=== PATIENT | female | born 1935 | race Caucasian/White ===

== ENCOUNTER 2018-03-12 14:37 | Inpatient (IN) | payer MEDICARE, OTHER ==
[~2018-03-12] VITALS: Ht 152.4 cm; Wt 81.2 kg
[~2018-03-12 14:37] MED LIST changes: -ALBU90OI61 INH; -AZIT250 PO; -DILT180 PO; -PRED10 PO; -SULFATRIM 800-120 ML PO; -TRAM50 PO; -TRAZ50 PO; -WARF1; -XARELTO15 MG PO
[2018-03-12] MEDS ORDERED: PRED10 PO (15:02)
[2018-03-12] MEDS ORDERED: WARF1 (15:02)
[2018-03-12] MEDS ORDERED: SULFATRIM 800-120 ML PO (15:04)
[2018-03-12] MEDS ORDERED: TRAZ50 PO (15:04)
[2018-03-12 15:05] LABS: BASOPHILS ABSOLUTE AUTO 0.06 K/mm3 (0.00-0.23); BASOPHILS PERCENT AUTO 1 % (0-2); EOSINOPHILS ABSOLUTE AUTO 0.16 K/mm3 (0.00-0.68); EOSINOPHILS PERCENT AUTO 2 % (0-6); Hematocrit 40.8 % (33.0-51.0); Hemoglobin 13.2 g/dL (11.5-16.0); IMMATURE GRAN ABSOLUTE AUTO 0.05 K/mm3 (0.00-0.10); IMMATURE GRAN PERCENT AUTO 1 % (0-1); LYMPHOCYTES ABSOLUTE AUTO 1.17 K/mm3 (0.84-5.20); LYMPHOCYTES PERCENT AUTO 11 % (21-46); MONOCYTES ABSOLUTE AUTO 0.84 K/mm3 (0.16-1.47); MONOCYTES PERCENT AUTO 8 % (4-13); Mean Corpuscular HGB 29.5 pg (26.0-34.0); Mean Corpuscular HGB Conc 32.4 g/dL (31.5-36.5); Mean Corpuscular Volume 91 fL (80-100); Mean Platelet Volume 12.2 fL (9.1-12.4); NEUTROPHILS ABSOLUTE AUTO 8.26 K/mm3 (1.96-9.15); NEUTROPHILS PERCENT AUTO 78 % (41-73); Platelet Count 135 K/mm3 (150-400); RDW Coefficient Variation 15.2 % (11.7-14.2); RDW Standard Deviation 50.8 fL (35.1-46.3); Red Blood Cell Count 4.48 M/mm3 (3.80-5.20); White Blood Cell Count 10.54 K/mm3 (4.00-11.30)
[2018-03-12 15:22] LABS: Alanine Aminotransfer (ALT/SGP 24 U/L (12-78); Albumin, Blood 3.2 g/dL (3.4-5.0); Albumin/Globulin Ratio 0.9 (0.8-1.8); Alk Phos 56 U/L (50-136); Anion Gap 8 mmol/L (6-16); Aspartate Aminotrans (AST/SGOT 16 U/L (12-37); Bilirubin, Total 0.6 mg/dL (0.1-1.0); Blood Urea Nitrogen 27 mg/dL (8-24); CO2, Blood 28 mmol/L (21-32); Calcium, Blood 9.3 mg/dL (8.5-10.1); Chloride, Blood 104 mmol/L (98-108); Creatinine, Blood 1.69 mg/dL (0.40-1.00); Globulin, Blood 3.6 g/dL (2.2-4.0); Glomerular Filtration Rate 31 (60-); Glucose, Blood 118 mg/dL (70-99); Potassium, Blood 4.5 mmol/L (3.5-5.5); Sodium, Blood 140 mmol/L (136-145); Total Protein, Blood 6.8 g/dL (6.4-8.2); Troponin I <0.015 ng/mL (0.000-0.040)
[2018-03-12] MEDS ORDERED: TRAM50 PO (15:24)
[2018-03-12] MEDS ORDERED: ALBU90OI61 INH (15:24)
[2018-03-12 17:22] LABS: Thyroid Stimulating Hormone 0.679 uIU/mL (0.360-4.800)
[2018-03-13 04:37] LABS: BASOPHILS ABSOLUTE AUTO 0.04 K/mm3 (0.00-0.23); BASOPHILS PERCENT AUTO 0 % (0-2); EOSINOPHILS ABSOLUTE AUTO 0.11 K/mm3 (0.00-0.68); EOSINOPHILS PERCENT AUTO 1 % (0-6); IMMATURE GRAN ABSOLUTE AUTO 0.05 K/mm3 (0.00-0.10); IMMATURE GRAN PERCENT AUTO 1 % (0-1); LYMPHOCYTES ABSOLUTE AUTO 1.06 K/mm3 (0.84-5.20); LYMPHOCYTES PERCENT AUTO 10 % (21-46); MONOCYTES ABSOLUTE AUTO 0.66 K/mm3 (0.16-1.47); MONOCYTES PERCENT AUTO 6 % (4-13); Mean Corpuscular HGB 29.2 pg (26.0-34.0); Mean Corpuscular HGB Conc 32.5 g/dL (31.5-36.5); Mean Corpuscular Volume 90 fL (80-100); Mean Platelet Volume 12.3 fL (9.1-12.4); NEUTROPHILS ABSOLUTE AUTO 8.43 K/mm3 (1.96-9.15); NEUTROPHILS PERCENT AUTO 81 % (41-73); Platelet Count 121 K/mm3 (150-400); RDW Coefficient Variation 15.2 % (11.7-14.2); RDW Standard Deviation 49.7 fL (35.1-46.3); Red Blood Cell Count 4.45 M/mm3 (3.80-5.20); White Blood Cell Count 10.35 K/mm3 (4.00-11.30)
[2018-03-13 04:55] LABS: Albumin, Blood 3.1 g/dL (3.4-5.0); Albumin/Globulin Ratio 0.9 (0.8-1.8); Bilirubin, Total 0.7 mg/dL (0.1-1.0); Bun/Creatinine Ratio 17.2 (12.0-20.0); Creatinine, Blood 2.03 mg/dL (0.40-1.00); Globulin, Blood 3.6 g/dL (2.2-4.0); Potassium, Blood 3.3 mmol/L (3.5-5.5); Total Protein, Blood 6.7 g/dL (6.4-8.2)
[2018-03-13 11:18] LABS: Source, Urine Clean Catch
[2018-03-13 11:34] LABS: Bilirubin, Urine Neg (Neg); Blood, Urine 1+ (Neg); Glucose Qualitative, Urine Neg (Neg); Ketones, Urine Neg (Neg); Leukocyte Esterase, Urine 1+ (Neg); Nitrite, Urine Neg (Neg); Protein, Urine Neg (Neg); Urobilinogen, Urine NORM (Normal)
[2018-03-13 11:39] LABS: Appearance, Urine Clear (Clear); Color, Urine Yellow (P-Yellow)
[2018-03-13 11:42] LABS: Bacteria Few /hpf; Red Blood Cells, Urine 0-2 /hpf (0-2); Squamous Epithelial Cells Few /hpf (Few)
[2018-03-13 16:12] LABS: Adenovirus Not Detected (NOT DETECT); Coronavirus 229E Not Detected (NOT DETECT); Coronavirus HKU1 Not Detected (NOT DETECT); Coronavirus NL63 Not Detected (NOT DETECT); Coronavirus OC43 Not Detected (NOT DETECT); Human Rhinovirus/Enterovirus Not Detected (NOT DETECT); Influenza A/2009-H1 Not Detected (NOT DETECT); Influenza A/H1 Not Detected (NOT DETECT); Influenza A/H3 Not Detected (NOT DETECT)
[2018-03-13 16:13] LABS: Bordetella pertussis Not Detected (NOT DETECT); Chlamydophila pneumoniae Not Detected (NOT DETECT); Influenza B Not Detected (NOT DETECT); Mycoplasma pneumoniae Not Detected (NOT DETECT); Parainfluenza Virus 1 Not Detected (NOT DETECT); Parainfluenza Virus 2 Not Detected (NOT DETECT); Parainfluenza Virus 3 Not Detected (NOT DETECT); Parainfluenza Virus 4 Not Detected (NOT DETECT); Respiratory Syncytial Virus Not Detected (NOT DETECT)
[2018-03-13 19:52] LABS: Human Metapneumovirus Detected (NOT DETECT)
[2018-03-13 21:16] LABS: Influenza A Not Detected (NOT DETECT)
[2018-03-14] MEDS ORDERED: PRED10 PO (10:29)
[2018-03-14] MEDS ORDERED: AZIT250 PO (10:32)
[2018-03-14] MEDS ORDERED: DILT180 PO (10:32)
[2018-03-14] MEDS ORDERED: XARELTO15 MG PO (10:33)
== END 2018-03-14 13:09 | disposition home or self-care (01) | DRG 309 ==
LOC: ER 14:37 → PCU 15:44
PROVIDERS: Hospitalist; Internal Medicine
DX: I48.91 Unspecified atrial fibrillation (principal); J45.901 Unspecified asthma with (acute) exacerbation; N39.0 Urinary tract infection, site not specified; I50.20 Unspecified systolic (congestive) heart failure; J20.9 Acute bronchitis, unspecified; E87.70 Fluid overload, unspecified; E87.6 Hypokalemia; M35.3 Polymyalgia rheumatica; I11.0 Hypertensive heart disease with heart failure; E78.5 Hyperlipidemia, unspecified; Z86.711 Personal history of pulmonary embolism; Z79.2 Long term (current) use of antibiotics; Z79.51 Long term (current) use of inhaled steroids; Z79.899 Other long term (current) drug therapy
CPT/HCPCS: 36415; 71046; 80053; 81001; 83880; 84443; 84484; 85025; 85610; 85730; 87070; 87086; 87205; 87486; 87581; 87633; 87798; 93005; 93010; 93306; 94760; 96365; 96375; 96376; 99285; J0696; J1940

== ENCOUNTER → 2018-03-12 | Outpatient (CLI) | payer MEDICARE, OTHER ==
[~2018-03-12] MED LIST: ALBU90OI; ALBU90OI61 INH; ATOR40TA PO; AZIT250 PO; BLOOD PRESSURE MED; CHOLESTERAL MED; CHOLESTEROL MED; CLAR500 PO; DILT180 PO; ETOD200; FEXO180; FLUSAL2505; GEMF600 PO; HYDACE5325 PO; IBUP400 PO; METCAR500 PO; ONDA4 PO; OXYACE5T PO; PRED10 PO; PROM25 PO; RXHYDGUAS PO; RXONDA4ODT MM; RXOXYACE PO; SIME80CH PO; SULFATRIM 800-120 ML PO; TRAM50 PO; TRAZ50 PO; TRIHYD253A PO; WARF1; XARELTO15 MG PO
[2018-03-12 14:18] LABS: BASOPHILS ABSOLUTE AUTO 0.05 K/mm3 (0.00-0.23); BASOPHILS PERCENT AUTO 1 % (0-2); EOSINOPHILS ABSOLUTE AUTO 0.22 K/mm3 (0.00-0.68); EOSINOPHILS PERCENT AUTO 2 % (0-6); Hematocrit 41.1 % (33.0-51.0); Hemoglobin 13.6 g/dL (11.5-16.0); IMMATURE GRAN ABSOLUTE AUTO 0.03 K/mm3 (0.00-0.10); IMMATURE GRAN PERCENT AUTO 0 % (0-1); LYMPHOCYTES ABSOLUTE AUTO 0.98 K/mm3 (0.84-5.20); LYMPHOCYTES PERCENT AUTO 9 % (21-46); MONOCYTES ABSOLUTE AUTO 0.82 K/mm3 (0.16-1.47); MONOCYTES PERCENT AUTO 8 % (4-13); Mean Corpuscular HGB Conc 33.1 g/dL (31.5-36.5); Mean Corpuscular Volume 91 fL (80-100); Mean Platelet Volume 12.2 fL (9.1-12.4); NEUTROPHILS ABSOLUTE AUTO 8.86 K/mm3 (1.96-9.15); NEUTROPHILS PERCENT AUTO 81 % (41-73); Platelet Count 142 K/mm3 (150-400); RDW Coefficient Variation 15.3 % (11.7-14.2); RDW Standard Deviation 51.1 fL (35.1-46.3); Red Blood Cell Count 4.53 M/mm3 (3.80-5.20); White Blood Cell Count 10.96 K/mm3 (4.00-11.30)
[2018-03-12 14:31] LABS: Albumin, Blood 3.4 g/dL (3.4-5.0); Albumin/Globulin Ratio 0.9 (0.8-1.8); Bilirubin, Total 0.7 mg/dL (0.1-1.0); Bun/Creatinine Ratio 14.9 (12.0-20.0); Calcium, Blood 9.7 mg/dL (8.5-10.1); Creatinine, Blood 1.88 mg/dL (0.40-1.00); Globulin, Blood 3.8 g/dL (2.2-4.0); Potassium, Blood 4.4 mmol/L (3.5-5.5); Total Protein, Blood 7.2 g/dL (6.4-8.2)
[2018-03-12 14:49] LABS: International Normalized Ratio 1.03; Prothrombin Time Results 10.7 Sec (9.7-11.5)
== END ==
LOC: LAB EV 14:13 → LAB SHORT 14:13
PROVIDERS: Physician Assistant
DX: Z79.01 Long term (current) use of anticoagulants (principal); Z51.81 Encounter for therapeutic drug level monitoring; R00.0 Tachycardia, unspecified; R05 Cough
CPT/HCPCS: 80053; 85025; 85610; 85730

== ENCOUNTER 2018-11-13 14:07 | Emergency (ER) | payer MEDICARE, OTHER ==
[~2018-11-13] VITALS: Ht 152.4 cm; Wt 81.7 kg
[~2018-11-13 14:07] MED LIST changes: +ALBU90OI61 INH; +AZIT250 PO; +DILT180 PO; +PRED10 PO; +SULFATRIM 800-120 ML PO; +TRAM50 PO; +TRAZ50 PO; +WARF1; +XARELTO15 MG PO
[2018-11-13] MEDS ORDERED: FURO40 PO (14:22)
[2018-11-13] MEDS ORDERED: POTCHL10ER PO (14:22)
[2018-11-13] MEDS ORDERED: Ultram50 MG PO (15:33)
== END 2018-11-13 16:25 | disposition home or self-care (01) ==
LOC: ER 14:07
DX: M19.072 Primary osteoarthritis, left ankle and foot (principal); J45.909 Unspecified asthma, uncomplicated; E78.5 Hyperlipidemia, unspecified; I48.91 Unspecified atrial fibrillation; Z79.899 Other long term (current) drug therapy; Z79.82 Long term (current) use of aspirin
CPT/HCPCS: 73630; 96374; 96375; 99283-25; J1885; J3010

== ENCOUNTER → 2019-11-02 | Outpatient (CLI) | payer MEDICARE, OTHER ==
[~2019-11-02] MED LIST changes: +FURO40 PO; +POTCHL10ER PO; +Ultram50 MG PO
[2019-11-02 12:46] LABS: BASOPHILS ABSOLUTE AUTO 0.04 K/mm3 (0.00-0.23); BASOPHILS PERCENT AUTO 1 % (0-2); EOSINOPHILS ABSOLUTE AUTO 0.25 K/mm3 (0.00-0.68); EOSINOPHILS PERCENT AUTO 3 % (0-6); Hematocrit 37.1 % (33.0-51.0); Hemoglobin 12.1 g/dL (11.5-16.0); IMMATURE GRAN ABSOLUTE AUTO 0.02 K/mm3 (0.00-0.10); IMMATURE GRAN PERCENT AUTO 0 % (0-1); LYMPHOCYTES ABSOLUTE AUTO 1.89 K/mm3 (0.84-5.20); LYMPHOCYTES PERCENT AUTO 23 % (21-46); MONOCYTES ABSOLUTE AUTO 0.83 K/mm3 (0.16-1.47); MONOCYTES PERCENT AUTO 10 % (4-13); Mean Corpuscular HGB 30.9 pg (26.0-34.0); Mean Corpuscular HGB Conc 32.6 g/dL (31.5-36.5); Mean Corpuscular Volume 95 fL (80-100); NEUTROPHILS ABSOLUTE AUTO 5.16 K/mm3 (1.96-9.15); NEUTROPHILS PERCENT AUTO 63 % (41-73); RDW Standard Deviation 48.2 fL (35.1-46.3); Red Blood Cell Count 3.92 M/mm3 (3.80-5.20); White Blood Cell Count 8.19 K/mm3 (4.00-11.30)
[2019-11-02 12:55] LABS: Albumin, Blood 3.1 g/dL (3.4-5.0); Bilirubin, Total 0.3 mg/dL (0.1-1.0); Bun/Creatinine Ratio 17.4 (12.0-20.0); Calcium, Blood 8.4 mg/dL (8.5-10.1); Creatinine, Blood 1.15 mg/dL (0.40-1.00); Globulin, Blood 3.2 g/dL (2.2-4.0); Potassium, Blood 3.8 mmol/L (3.5-5.5); Total Protein, Blood 6.3 g/dL (6.4-8.2)
[2019-11-02 13:13] LABS: Mean Platelet Volume 11.5 fL (9.1-12.4); Platelet Count 139 K/mm3 (150-400)
[2019-11-02 13:26] LABS: Uric Acid, Blood 5.1 mg/dL (2.6-6.0)
[2019-11-03 10:58] LABS: Antinuclear Antibody Screen Negative (Negative)
[2019-11-03 13:17] LABS: Rheumatoid Factor, Serum Positive (Negative)
[2019-11-03 13:18] LABS: RA, SEMIQUANTITATIVE 32 IU/ml (<8)
== END | disposition home or self-care (01) ==
LOC: LAB SHORT 12:39 → LAB EV 12:39 → LAB 12:39
PROVIDERS: General Practice
DX: S66.912A Strain of unspecified muscle, fascia and tendon at wrist and hand level, left hand, initial encounter (principal); Z86.79 Personal history of other diseases of the circulatory system
CPT/HCPCS: 80053; 84550; 85025; 85651; 86038; 86200; 86430; 86431

== ENCOUNTER → 2020-08-23 | Outpatient (CLI) | payer MEDICARE, OTHER | LOC: LAB SHORT 18:40 → LAB 18:40 | DX: L08.9 Local infection of the skin and subcutaneous tissue, unspecified (principal) | CPT/HCPCS: 87070; 87205 ==

== ENCOUNTER 2021-06-16 11:48 | Inpatient (IN) | payer MEDICARE, OTHER ==
[~2021-06-16] VITALS: Ht 167.6 cm; Wt 90.8 kg
[2021-06-16 12:35] LABS: BASOPHILS ABSOLUTE AUTO 0.06 K/mm3 (0.00-0.23); BASOPHILS PERCENT AUTO 1 % (0-2); EOSINOPHILS ABSOLUTE AUTO 0.01 K/mm3 (0.00-0.68); EOSINOPHILS PERCENT AUTO 0 % (0-6); Hematocrit 39.6 % (33.0-51.0); Hemoglobin 12.3 g/dL (11.5-16.0); IMMATURE GRAN ABSOLUTE AUTO 0.04 K/mm3 (0.00-0.10); IMMATURE GRAN PERCENT AUTO 1 % (0-1); LYMPHOCYTES ABSOLUTE AUTO 1.45 K/mm3 (0.84-5.20); LYMPHOCYTES PERCENT AUTO 16 % (21-46); MONOCYTES ABSOLUTE AUTO 1.13 K/mm3 (0.16-1.47); MONOCYTES PERCENT AUTO 13 % (4-13); Mean Corpuscular HGB 26.7 pg (26.0-34.0); Mean Corpuscular HGB Conc 31.1 g/dL (31.5-36.5); Mean Corpuscular Volume 86 fL (80-100); Mean Platelet Volume 11.3 fL (9.1-12.4); NEUTROPHILS ABSOLUTE AUTO 6.15 K/mm3 (1.96-9.15); NEUTROPHILS PERCENT AUTO 70 % (41-73); Platelet Count 177 K/mm3 (150-400); RDW Coefficient Variation 17.5 % (11.7-14.2); RDW Standard Deviation 55.8 fL (35.1-46.3); White Blood Cell Count 8.84 K/mm3 (4.00-11.30)
[2021-06-16 12:58] LABS: Albumin/Globulin Ratio 0.8 (0.8-1.8); Bilirubin, Total 0.5 mg/dL (0.1-1.0); Bun/Creatinine Ratio 12.9 (12.0-20.0); Calcium, Blood 8.7 mg/dL (8.5-10.1); Creatine Kinase MB 6.1 ng/mL (0.0-3.6); Creatine Kinase MB Index 1.1 (0.0-4.0); Creatinine, Blood 1.4 mg/dL (0.40-1.00); Globulin, Blood 3.8 g/dL (2.2-4.0); Potassium, Blood 3.6 mmol/L (3.5-5.5); Total Protein, Blood 6.8 g/dL (6.4-8.2); Troponin I 0.033 ng/mL (0.000-0.040)
[2021-06-16] MEDS ORDERED: PRED5 PO (14:46)
[2021-06-16] MEDS ORDERED: ELIQUIS2.5 M1 PO (14:47)
[2021-06-16] MEDS ORDERED: ROSUVASTATIN CA40 MG PO (14:47)
[2021-06-16] MEDS ORDERED: WIXELA 250-501 EAC1 INH (14:47)
[2021-06-16] MEDS ORDERED: GABA100 PO (14:47)
[2021-06-16] MEDS ORDERED: DILTIAZEM 24HR180 M3 PO (14:47)
[2021-06-16 17:38] LABS: Source, Urine Catheter
[2021-06-16 17:48] LABS: Appearance, Urine Clear (Clear); Bilirubin, Urine Neg (Neg); Blood, Urine 3+ (Neg); Color, Urine Yellow (P-Yellow); Glucose Qualitative, Urine Neg (Neg); Ketones, Urine 2+ (Neg); Leukocyte Esterase, Urine Neg (Neg); Nitrite, Urine Neg (Neg); Protein, Urine 3+ (Neg); Urobilinogen, Urine NORM (Normal)
[2021-06-16 18:08] LABS: Bacteria Mod /hpf; Red Blood Cells, Urine 0-2 /hpf (0-2); Squamous Epithelial Cells Mod /hpf (Few)
--- NOTE | 2021-06-16 18:26 | NUR ---
SHIFT SUMMARY NO ACUTE EVENTS SINCE ARRIVAL FROM ED. PT IS ALERT, ANSWERS QUESTIONS APPROPRIATELY. PT TRANSFERED TO BED BY NURSING STAFF. PT CALLS APPROPRIATELY. ON ROOM AIR, TOLERATING WELL WITH O2 SATURATION > 90%. FLUIDS RUNNING PER EMAR, TOLERATING PO INTAKE. NO SIGNS OF ACUTE DISTRESS, SPEAKING WITH FAMILY ON PHONE.
[2021-06-17 01:12] LABS: BASOPHILS PERCENT AUTO 0 % (0-2); EOSINOPHILS PERCENT AUTO 0 % (0-6); Hematocrit 36.8 % (33.0-51.0); Hemoglobin 11.4 g/dL (11.5-16.0); IMMATURE GRAN ABSOLUTE AUTO 0.03 K/mm3 (0.00-0.10); IMMATURE GRAN PERCENT AUTO 1 % (0-1); LYMPHOCYTES PERCENT AUTO 8 % (21-46); MONOCYTES ABSOLUTE AUTO 0.19 K/mm3 (0.16-1.47); MONOCYTES PERCENT AUTO 3 % (4-13); Mean Corpuscular HGB 26.5 pg (26.0-34.0); Mean Corpuscular Volume 86 fL (80-100); Mean Platelet Volume 11.4 fL (9.1-12.4); NEUTROPHILS ABSOLUTE AUTO 5.49 K/mm3 (1.96-9.15); NEUTROPHILS PERCENT AUTO 88 % (41-73); Platelet Count 145 K/mm3 (150-400); RDW Coefficient Variation 17.4 % (11.7-14.2); RDW Standard Deviation 54.7 fL (35.1-46.3); White Blood Cell Count 6.21 K/mm3 (4.00-11.30)
[2021-06-17 01:32] LABS: Albumin, Blood 2.6 g/dL (3.4-5.0); Albumin/Globulin Ratio 0.7 (0.8-1.8); Bilirubin, Total 0.4 mg/dL (0.1-1.0); Bun/Creatinine Ratio 17.3 (12.0-20.0); Calcium, Blood 7.9 mg/dL (8.5-10.1); Creatinine, Blood 1.39 mg/dL (0.40-1.00); Globulin, Blood 3.6 g/dL (2.2-4.0); Potassium, Blood 3.5 mmol/L (3.5-5.5); Total Protein, Blood 6.2 g/dL (6.4-8.2); Troponin I 0.03 ng/mL (0.000-0.040)
--- NOTE | 2021-06-17 04:51 | NUR ---
SHIFT SUMMARY PT APPEARS TO BE A&O X3. SHE HAS BEEN ABLE TO SLEEP THROUGH THE NIGHT. PT REMAINS ON RA, SPO2 FLUCTUATES BETWEEN 89-96% DEPENDING UPON LEVEL OF SLEEP. PT DENIES SOB, STATES SHE IS FEELING BETTER & HER COUGH IS "ABOUT THE SAME". PT HAS C/O RIGHT LEG PAIN, SHE WAS ASSISTED WITH REPOSITIONING PRN IN BED, TYLENOL WAS GIVEN X1. 500 ML DARK JAZZY URINE NOTED IN HARRELL. PT IS TOLERATING PO INTAKE. BED ALARM IS ON FOR SAFETY, CALL LIGHT IN REACH. TM
--- NOTE | 2021-06-17 18:03 | NUR ---
SHIFT SUMMARY NO ACUTE EVENTS THIS SHIFT, VSS. PT PUT ON 1 L VIA NASAL CANNULA, MAINTAINING O2 SATURATION IN LOW 90S. PT IS ALERT AND ANSWERS ORIENTATION QUESTIONS APPROPRIATELY, HOWEVER APPEARS FORGETFUL AT TIMES. PT IS HARD OF HEARING. BED ALARM IN PLACE. PT'S SON VISITED THIS AFTERNOON. PT WORKED WITH PT THIS SHIFT. PT'S HEART RATE INCREASED DURING SHIFT UP TO 130s, PRN CARDIZEM GIVEN PER EMAR, PT'S HEART RATE IN 100s-110s REST OF SHIFT.
--- NOTE | 2021-06-18 05:56 | NUR ---
HOSPITALIST NOTIFIED PT CONTINUES TO HAVE AN INCREASED HR 120'S-150. PT HAD BEEN GIVEN PRN DILTIAZAM X 1 EARLIER IN THE NIGHT WITH NO CHANGE. 5 MG IV LOPRESSOR Q4 PRN WAS ORDERED TO BE GIVEN FOR HR GREATER THAN 120. PT HAS ALSO BEEN INCREASED TO 2 L O2 VIA NC TO MAINTAIN SPO2 >92%, LUNG SOUNDS ARE COARSE. IV FLUIDS HAVE BEEN D/C, CHEST XRAY ORDERED FOR THIS AM. PT REMAINS A&O X3, BREATHING TX GIVEN PER PT REQUEST. CALL LIGHT IN REACH
--- NOTE | 2021-06-18 06:05 | NUR ---
SUMMARY IV METOPROLOL WAS GIVEN PER ORDERS FOR SUSTAINED HR >120, PT TOLERATED THIS WITH NO PROBLEMS, HR IS NOW FLUCTUATING BETWEEN 70-105. PT DENIES CP/PRESSURE. PT REMAINS A&O X3, 2 L 02 VIA NC, SPO2 >92%, TOLERATING PO INTAKE, HARRELL PATENT, JAZZY URINE NOTED, NS TKO IN RIGHT FA. PT USES CALL LIGHT PRN, BED ALARM IS ON FOR SAFETY. WCTM
--- NOTE | 2021-06-18 15:31 | NUR ---
Spoke with Door Clamp Operator Lesa and discussed case. Pt needs assistance with completing POLST. Plan is to find placement in SNF. Spoke with Primary RN Laura and discussed case. Pt resting in bed with her eyes closed upon arrival. Pt wakes to gentle verbal stimuli. Pt denies pain at this time. Pt reports feeling better. Engaged in therapeutic discussion regarding considering completing POLST. Educated on life sustaining treatments including risk factors of CPR. Pt agreeable to complete POLST. Assisted Pt with completing POLST and educated on each section that needs to be completed. Educated on each option including meaning of each option. Pt's wishes are Full Code and Full Treatment. Pt signs POLST. Pt reports no other concerns at this time. Palliative Care will remain available.
[2021-06-18 17:32] LABS: SARS-Cov-2 (COVID-19) PCR, MMC POSITIVE (NEGATIVE)
--- NOTE | 2021-06-18 18:00 | NUR ---
SHIFT SUMMARY/PT TRANSFER PT ALERT AND ORIENTED. CONFUSED AT TIMES. HR STABLE. BP STABLE. NO CP OR PRESSURE REPORTED. PT SBA TO COMMODE. HARRELL PATENT AND DRAINING TO GRAVITY. OXYGEN SATURATION MAINTAINED ABOVE 92% ON 3 L OF OXYGEN VIA NC. PT REPORTS NO PAIN. PT WORKED WITH OT THIS AM, DECLINED TO WORK WITH PT D/T FEELING TOO TIRED. REPORT GIVEN TO LAQUITA SULLIVAN. PT TRANSFERRED TO ROOM 325 BY WHEELCHAIR WITH BELONGINGS AND CHART BY FACILITIES PAINTER.
--- NOTE | 2021-06-18 19:44 | NUR ---
arrived from [facility] on 3L via nc, reduced to 2L since pt was stating above 92%, call light in reach, sitting up eating dinner, report shared with noc nurse
--- NOTE | 2021-06-19 06:20 | NUR ---
SHIFT SUMMARY: AOX3, COOPERATIVE. LS DIMINISHED IN THE BASES. COUGH OCCATIONAL NON-PRODUCTIVE. ON 3 LITERS OF O2 TO KEEP SATS >90%. SOB WITH EXERTION, WEAK. CONTINENT/INCONTIENT, HARRELL PATENT AND DRAINING. TELE REPORTS AFIB. MILD EDEMA IN THE LEGS. NO COMPLAINTS THIS SHIFT. CALL LIGHT IS IN REACH. SLEPT OK T/O THE NIGHT. NO ACUTE CHANGES TO REPORT.
[2021-06-19 06:38] LABS: Albumin, Blood 2.6 g/dL (3.4-5.0); Anion Gap 6 mmol/L (6-16); Blood Urea Nitrogen 49 mg/dL (8-24); CO2, Blood 26 mmol/L (21-32); Calcium, Blood 8.3 mg/dL (8.5-10.1); Chloride, Blood 105 mmol/L (98-108); Creatinine, Blood 1.53 mg/dL (0.40-1.00); Glomerular Filtration Rate 32 (60-); Glucose, Blood 293 mg/dL (70-99); Magnesium, Blood 2.1 mg/dL (1.6-2.4); Phosphorus, Blood 3.7 mg/dL (2.5-4.9); Potassium, Blood 4.3 mmol/L (3.5-5.5); Sodium, Blood 137 mmol/L (136-145)
--- NOTE | 2021-06-19 20:14 | NUR ---
A+O, CALL LIGHT IN REACH, BREATHING DIMINISHED, 2l VIA NC, SALINE LOCKED
--- NOTE | 2021-06-20 03:50 | NUR ---
shift summary:ISOLATION PRECAUTIONS.PT A&OX3,CALM COOPERATIVE, LUNG SOUNDS DIMINISHED STAT@93% 2LNC NON PRODUCTIVE COUGH, TELE REPORTS AFIB 68. REPORTED RESTLESSNESS RECEIVED MELOTONIN @HS. CBG 443 REPEAT 450 PROVIDER NOTIFIED [facility] IN AM AND MONITOR AC/HS WITH LOW SLIDING SCALE. TRACE EDEMA TO LE. CALL LIGHT IN REACH BED LOWERED RAILS UP.
[2021-06-20 06:46] LABS: Albumin, Blood 2.4 g/dL (3.4-5.0); Anion Gap 6 mmol/L (6-16); Blood Urea Nitrogen 56 mg/dL (8-24); Bun/Creatinine Ratio 37.1 (12.0-20.0); CO2, Blood 26 mmol/L (21-32); Calcium, Blood 8.3 mg/dL (8.5-10.1); Chloride, Blood 103 mmol/L (98-108); Creatinine, Blood 1.51 mg/dL (0.40-1.00); Glomerular Filtration Rate 33 (60-); Glucose, Blood 348 mg/dL (70-99); Potassium, Blood 4.5 mmol/L (3.5-5.5); Sodium, Blood 135 mmol/L (136-145)
[2021-06-20] MEDS ORDERED: ACET325 PO (12:01)
[2021-06-20] MEDS ORDERED: PROAIR RESPICL90 MCG INH (12:11)
[2021-06-20] MEDS ORDERED: DEXA4 PO (12:12)
[2021-06-20] MEDS ORDERED: AIRDUO RESPICL1 EAC4 INH (12:13)
[2021-06-20] MEDS ORDERED: IPRAT-ALBUT 0.5-3 ML INH (12:14)
[2021-06-20] MEDS ORDERED: MELATONIN5 M1 PO (12:15)
[2021-06-20] MEDS ORDERED: METO50ER PO (12:19)
[2021-06-20] MEDS ORDERED: MONT10T PO (12:19)
[2021-06-20] MEDS ORDERED: Crestor40 MG PO (12:20)
--- NOTE | 2021-06-20 17:48 | NUR ---
SHIFT SUMMARY PATIENT IS ALERT AND ORIENTED SITTING UP THE BED. SHE IS ON ROOM AIR AND IS ON A BED ROSARIO/BRIEFS. SHE IS ON GLUCOSE MONITORING DUE TO HER ROUND OF STEROIDS AND IS NOW ON A HIGH SLIDING SCALE. SHE WAS SCHEDULED TO BE DISCHARGED THIS AFTERNOON, BUT WAS DEEMED UNABLE TO BE LEFT ALONE BY PT. BECAUSE OF THIS HER DISCHARGE HAS BEEN MOVED TO WEDNESDAY. DR BUSH DC OF IV, URINARY CATHETER, AND TELE. HER SON, DELVIN, WILL BE TAKING HER TO [place] ON WEDNESDAY TO STAY WITH HIM WHILE SHE RECOVERS. HE REQUESTS TO BE CALLED THIS WEEKEND AND GIVEN AN UPDATE ON HOME HEALTH BEING SENT TO [place] AND IF HE CAN CAN A SHOWER/ TOILETING CHAIR FOR HER. MESSAGE WAS LEFT WITH JEAN MARIE CHANDLER ABOUT HIS WISHES.
--- NOTE | 2021-06-21 04:45 | NUR ---
SHIFT SUMMARY:PT REMAINS ON ISOLATION PRECUTIONS PER PROTOCOL PT IS A&OX3 CALM AND COOPERATIVE. PT IS INCONTINENT WEARING AN ATTEND. PT CBG IS 334 PROVIDER ORDER ONE TIME COVERAGE 9 UNITS HUMALOG. REPORTED PT IS TO D/C WEDNESDAY CONTACT SON TO ARRANGE TRANSFER MID MORNING. HOB @30 CALL LIGHT WITHIN REACH BED LOWERED.
[2021-06-21 09:37] LABS: Bun/Creatinine Ratio 41.8 (12.0-20.0); Creatinine, Blood 1.22 mg/dL (0.40-1.00); Magnesium, Blood 2.1 mg/dL (1.6-2.4); Potassium, Blood 4.8 mmol/L (3.5-5.5)
--- NOTE | 2021-06-21 18:45 | NUR ---
PATIENT IS ALERT AND ORIENTED AND UP IN BED. SHE DENIES PAIN AND HAS SOME SHORTNESS OF BREATH AND WHEEZING WITH BED CHANGES. SHE HAD A BED BATH AND WASHED HER HAIR TODAY. SHE IS READY FOR [facility] AND HAS HER SON COMING FOR HER ON Wednesday TO TAKE HER TO [place] TO CARE FOR HER AT HIS HOME. HE HAS BEEN TOLD TO CALL Wednesday TO INFORM THEM WHAT TIME HE WILL BE HERE AND TO CLARIFY ABOUT HOME HEALTH AND THE ASSISTIVE DEVICES SHE WILL NEED.
--- NOTE | 2021-06-22 04:26 | NUR ---
SUPERINTENDENT DISTRIBUTION SUMMARY HAS BEEN RESTING QUIETLY WITH OCCASIONAL INTERRUPTIONS FOR INCONT AND CHANGING OF BRIEF. NO C/O PAIN. NO NOTED ACUTE DISTRESS.O2 MONITORING - 90'S SATS. AWAITING DISCHARGE POSSIBLY WEDNESDAY. CALL LIGHT IN REACH
[2021-06-22 06:12] LABS: Albumin, Blood 2.3 g/dL (3.4-5.0); Anion Gap 5 mmol/L (6-16); Blood Urea Nitrogen 46 mg/dL (8-24); CO2, Blood 31 mmol/L (21-32); Calcium, Blood 8.5 mg/dL (8.5-10.1); Chloride, Blood 102 mmol/L (98-108); Creatinine, Blood 1.18 mg/dL (0.40-1.00); Glomerular Filtration Rate 44 (60-); Glucose, Blood 267 mg/dL (70-99); Magnesium, Blood 1.9 mg/dL (1.6-2.4); Phosphorus, Blood 3.4 mg/dL (2.5-4.9); Potassium, Blood 4.5 mmol/L (3.5-5.5); Sodium, Blood 138 mmol/L (136-145)
--- NOTE | 2021-06-22 18:04 | NUR ---
SHIFT SUMMARY PATIENT IS A/O AND COOPERATIVE WITH CARE. UP TO BATHROOM FOR WITH FWW, GAIT BELT, AND 1P ASSIST. PATIENT IS INCONTINENT OF URINE AND IS ATTENDS. DENIES PAIN AND SOB. SHE IS AWARE OF PLAN FOR DISCHARGE TOMORROW WITH HER SON TO [place]. FAMILY HAS BEEN TOLD TO CALL TOMORROW ABOUT HOME HEALTH CONSULT AND ASSISTIVE DEVICES.
--- NOTE | 2021-06-23 03:31 | NUR ---
MEDICAL CASE MANAGER SUMMARY HAS BEEN RESTING QUIETLY IN BED WITH INTERMITTENT BOUTS OF WAKEFULNESS DUE TO INCONT OF URINE AND REQUESTS TO BE CHANGED. REMAINS ON ROOM AIR. POSSIBLE DISCHARGE TO HOME WITH SON TO PICK HER UP LATER THIS AM. DROPLET PRECAUTIONS MAINTAINED. CALL LIGHT IN REACH. AFFECT ATTENTIVE WHEN SPEAKING WITH STAFF.
--- NOTE | 2021-06-23 11:46 | NUR ---
1120 PT DISCHARGED HOME WITH HOME HEALTH WITH SON VIA PERSONAL VEHICLE. D/C PAPERWORK REVIEWED WITH PT AND COPY PROVIDED. ESCORTED TO ENTRANCE VIA W/C BY MANAGER ONCOLOGY. MEDICATIONS FAXED TO [facility], [facility] ORDER COMPLETED FROM PREVIOUS MED REC ON 06/19, CONFIRMED THIS WITH DR. BROWN. PT ON RA. NO OTHER CHANGES OR CONCERNS.
--- NOTE | 2021-06-23 14:50 | NUR ---
Pt. is not in the room , dischargeed and gone home
== END 2021-06-23 11:20 | disposition home health service (06) | DRG 177 ==
LOC: ER 11:48 → ERHOLD 14:41 → PCU 14:41 → MEDS 06-18 17:55 → ENPENDDIS 06-20 11:29 → MEDS 06-20 22:23
PROVIDERS: Emergency Medicine; Internal Medicine; Nurse Practitioner Acute Care; ADMIT Hospitalist
PROC: 3E0333Z Introduction of Anti-inflammatory into Peripheral Vein, Percutaneous Approach (ICD-10-PCS; principal; 2021-06-16)
PROC: XW033E5 Introduction of Remdesivir Anti-infective into Peripheral Vein, Percutaneous Approach, New Technology Group 5 (ICD-10-PCS; 2021-06-16)
PROC: 8E0ZXY6 Isolation (ICD-10-PCS; 2021-06-16)
DX: U07.1 COVID-19 (principal); J12.82 Pneumonia due to coronavirus disease 2019; J96.01 Acute respiratory failure with hypoxia; G92 Toxic encephalopathy; I48.92 Unspecified atrial flutter; J44.0 Chronic obstructive pulmonary disease with (acute) lower respiratory infection; J45.901 Unspecified asthma with (acute) exacerbation; I48.20 Chronic atrial fibrillation, unspecified; G89.29 Other chronic pain; I12.9 Hypertensive chronic kidney disease with stage 1 through stage 4 chronic kidney disease, or unspecified chronic kidney disease; M06.9 Rheumatoid arthritis, unspecified; E66.9 Obesity, unspecified; M54.9 Dorsalgia, unspecified; R26.9 Unspecified abnormalities of gait and mobility; Z96.652 Presence of left artificial knee joint; N18.30 Chronic kidney disease, stage 3 unspecified; E04.9 Nontoxic goiter, unspecified; E87.70 Fluid overload, unspecified; Z60.2 Problems related to living alone; E78.5 Hyperlipidemia, unspecified; Z86.711 Personal history of pulmonary embolism; Z90.710 Acquired absence of both cervix and uterus; Z87.442 Personal history of urinary calculi; Z98.890 Other specified postprocedural states; Z90.49 Acquired absence of other specified parts of digestive tract; Z86.010 Personal history of colon polyps; Z79.51 Long term (current) use of inhaled steroids; Z79.899 Other long term (current) drug therapy; Z79.01 Long term (current) use of anticoagulants
CPT/HCPCS: 36415; 51702; 70450; 71045; 72125; 80048; 80053; 80069; 81001; 82550; 82553; 82947; 83036; 83735; 83880; 84484; 85025; 87086; 93005; 93010; 93306; 94640; 94644; 94664; 94760; 94762; 96374; 96375; 97110; 97116; 97162; 97166; 97530; 97535; 99285-25; A9270; J1100; J1940; J7030; U0004

== ENCOUNTER → 2022-05-16 | Outpatient (CLI) | payer MEDICARE, OTHER ==
[~2022-05-16] MED LIST changes: +ACET325 PO; +AIRDUO RESPICL1 EAC4 INH; +Crestor40 MG PO; +DEXA4 PO; +DILTIAZEM 24HR180 M3 PO; +ELIQUIS2.5 M1 PO; +GABA100 PO; +IPRAT-ALBUT 0.5-3 ML INH; +MELATONIN5 M1 PO; +METO50ER PO; +MONT10T PO; +PRED5 PO; +PROAIR RESPICL90 MCG INH; +ROSUVASTATIN CA40 MG PO; +WIXELA 250-501 EAC1 INH
== END | disposition home or self-care (01) ==
LOC: LAB 16:45 → LAB SHORT 16:45
DX: L08.9 Local infection of the skin and subcutaneous tissue, unspecified (principal)
CPT/HCPCS: 87070; 87205

== ENCOUNTER → 2024-04-19 | Outpatient (CLI) | payer OTHER | LOC: LAB SHORT 17:07 → LAB 17:07 | DX: E04.9 Nontoxic goiter, unspecified (principal) | CPT/HCPCS: 84443 ==

== ENCOUNTER → 2024-05-02 | Outpatient (CLI) | payer OTHER | LOC: LAB 19:13 → LAB SHORT 19:13 | DX: R32 Unspecified urinary incontinence (principal) | CPT/HCPCS: 87086 ==